=== PATIENT | male | born 1935 | race Caucasian/White ===

== ENCOUNTER 2017-09-25 10:18 | Observation (INO) | payer OTHER ==
[2017-09-25] MEDS ORDERED: LIDOCAINE 2% VISCOUS 15 ML UDCUP PO ONE (10:27)
[2017-09-25] MEDS ORDERED: NS 500 ML IV ONE (10:27)
[2017-09-25] MEDS ORDERED: HYOSCYAMINE SULFATE 0.125 MG TAB PO ONE (10:27)
[2017-09-25] MEDS ORDERED: MAG HYDROX/AL HYDROX/SIMETH 30 ML UDCUP PO ONE (10:27)
--- NOTE | 2017-09-25 10:35 | CPEKG ---
Heart Rate: 66 RR Interval: 909 P-R Interval: 260 QRSD Interval: 120 QT Interval: 444 QTC Interval: 466 QRS [place]: -36 T Wave [place]: -9 EKG Severity - ABNORMAL ECG - EKG Impression: ATRIAL-PACED RHYTHM EKG Impression: INCOMPLETE RBBB AND LAFB EKG Impression: PROBABLE LEFT VENTRICULAR HYPERTROPHY EKG Impression: ANTERIOR Q WAVES, POSSIBLY DUE TO LVH Electronically Signed By: Concetta Brown 25-Sep-2017 13:12:22
--- NOTE | 2017-09-25 10:41 | EDPHY ---
H & P Time Seen by Provider: 09/25/17 10:23 HPI/ROS: HPI Chest pain. 82-year-old male from the office of his primary care physician Dr. Law. This patient has a history of coronary artery disease. He had a stent placed in his RCA and June of [address] Rao Mayberry. He also reports that he was seen last fall twice in the emergency department at [facility] [place] [place] in [place] for chest pain. He was admitted overnight the 1st visit and then discharged the following morning after a negative workup. He then had more chest pain about a week later was seen in the emergency department and discharged from the emergency department. 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 He has never had endoscopy. He reports that since last night at 7:30 p.m. He has had mid substernal aching and pressure. He reports it has been constant. He reports that it was an 8/10 at worst this morning. It is now a 4/10. ROS: Constitutional: No fever, no chills. No weakness. Eyes: No discharge. No changes in vision. ENT: No sore throat. No nasal congestion or rhinorrhea. Respiratory: No cough. No shortness of breath. Cardiac: No chest pain, no palpitations. Gastrointestinal: No abdominal pain, no vomiting, no diarrhea. Genitourinary: No hematuria. No dysuria or increased frequency with urination. Musculoskeletal: No back pain. No neck pain. No myalgias or arthralgias. Skin: No rashes. Neurological: No headache. No focal weakness or altered sensation. Past medical history: Coronary artery disease as above. Social history: Nonsmoker. Here with his . No alcohol. Physical Exam: General Appearance: Alert, pleasant, does not appear in distress at this time. This patient is responding to questions appropriately and in full sentences. This patient appears well-hydrated and well-nourished. Eyes: Pupils equal and round no pallor or injection. No lid edema, erythema or injection. Respiratory: There are no retractions, lungs are clear to auscultation with good air movement bilaterally. Cardiovascular: Regular rate and rhythm. No murmur. Gastrointestinal: Abdomen is soft and nontender, no masses, bowel sounds normal. No focal tenderness at McBurney's point. No Archuleta sign. Neurological: Motor sensory function is grossly intact. Cranial nerves are normal. Gait is normal. Skin: Warm and dry, no rashes. Musculoskeletal: Neck is supple and nontender. Extremities are symmetrical. All joints range without pain or impingement. Psychiatric: No agitation. No depression. Database: EKG: EKG time is 10:33 a.m.; EKG shows a narrow complex atrial paced rhythm with a ventricular rate of 66. Incomplete right bundle branch block and left anterior fascicular block noted. Probable left ventricular hypertrophy. T-wave inversion noted in lead 3. The ID, QRS, QT intervals are within normal limits. There are no ST-T wave changes indicative of ischemic or injury pattern. No evidence of right heart strain. This EKG was compared to a prior EKG from June of 2016. No significant changes. Interpreted by me. EKG 2. Time 12:41 p.m.; No significant change from prior. Interpreted by me. Imaging: Chest x-ray AP portable; the cardiac mediastinal silhouette is unremarkable. No evidence of infiltrate or pneumothorax. No acute cardiopulmonary disease process noted. Interpreted by me. CT angiogram of chest; negative for pulmonary embolism. Mild bronchitis. No other pathology. Results were discussed with staff radiologist Dr. Jeromy Gutierrez. Procedures: Emergency department course: Vital signs reviewed. He is moderately hypertensive. Vital signs otherwise normal. EKG obtained and reviewed by myself. Patient will be initially given a GI cocktail. If he has no relief in his pain from this medication. He will be given sublingual nitroglycerin and/or fentanyl for his chest pain. 12:10 p.m., waiting CT scan results. Patient states that he still has a low level of chest pain. We will give a trial dose of nitroglycerin to see if this improves his pain. Hospitalist paged for admission. 12:20 p.m., spoke with hospitalist. Patient accepted for admission to PCU under the care of Dr. Mcpherson. 12:30 p.m., patient had no relief from sublingual nitroglycerin. He will be given small doses of titrated fentanyl for pain relief. He is awaiting admission. His EKG will be repeated. 1:00 p.m., patient re-evaluated. He is feeling better after above fentanyl. Vital signs reviewed and are stable. He appears comfortable. He was transferred to [facility] in stable and improved condition. Differential Diagnosis: The differential diagnosis on this patient includes but is not limited to acute coronary syndrome, anginal equivalent chest pain, esophageal spasm, GERD. This represents a partial list of diagnoses considered. These considerations are based on history, physical exam, past history, reassessment and diagnostic testing. Smoking Status: Former smoker Constitutional: Initial Vital Signs Temperature (C) 36.4 C 09/25/17 10:24 Heart Rate 66 09/25/17 10:24 Respiratory Rate 18 09/25/17 10:24 Blood Pressure 153/100 H 09/25/17 10:24 O2 Sat (%) 92 09/25/17 10:24 O2 Delivery Mode Room Air Allergies/Adverse Reactions: No Known Allergies Allergy (Verified 09/25/17 10:24) Home Medications: Medication Instructions Recorded Omeprazole [Prilosec 20 mg] 20 mg PO BID 09/18/13 Aspirin [Aspirin 81mg (*)] 81 mg PO DAILY 04/20/15 C/E/Zn/Cu/OM3/DHA/EPA/LUT/ZEAX 1 each PO BID 07/12/16 [Preservision Areds 2 Softgel] Levothyroxine [Synthroid 137 mcg 137 mcg PO DAILY06 07/12/16 (*)] Lisinopril [Zestril 10 mg (*)] 10 mg PO DAILY@18 07/12/16 Mirtazapine [Remeron] 7.5 - 15 mg PO HS PRN 07/12/16 Atorvastatin Calcium [Lipitor 40 40 mg PO DAILY #30 tab 07/13/16 mg (*)] Ticagrelor [Brilinta] 90 mg PO BID #60 tab 07/13/16 Medical Decision Making - Diagnostics Imaging Results: Imaging Impressions Chest X-Ray 09/25/17 10:28 Impression: Basilar atelectasis with no acute findings. - Data Points Laboratory Results: Laboratory Results 09/25/17 10:44 09/25/17 10:44 09/25/17 09/25/17 09/25/17 10:44 10:44 10:44 WBC 8.42 10^3/uL 10^3/uL (3.80-9.50) RBC 5.01 10^6/uL 10^6/uL (4.40-6.38) Hgb 15.6 g/dL g/dL (13.7-17.5) Hct 46.8 % % (40.0-51.0) MCV 93.4 fL fL (81.5-99.8) MCH 31.1 pg pg (27.9-34.1) MCHC 33.3 g/dL g/dL (32.4-36.7) RDW 13.1 % % (11.5-15.2) Plt Count 222 10^3/uL 10^3/uL (150-400) MPV 9.0 fL fL (8.7-11.7) Neut % (Auto) 76.1 % H % (39.3-74.2) Lymph % (Auto) 15.3 % % (15.0-45.0) [place] % (Auto) 6.4 % % (4.5-13.0) Eos % (Auto) 1.4 % % (0.6-7.6) Baso % (Auto) 0.4 % % (0.3-1.7) Nucleat RBC Rel Count 0.0 % % (0.0-0.2) Absolute Neuts (auto) 6.41 10^3/uL 10^3/uL (1.70-6.50) Absolute Lymphs (auto) 1.29 10^3/uL 10^3/uL (1.00-3.00) Absolute Monos (auto) 0.54 10^3/uL 10^3/uL (0.30-0.80) Absolute Eos (auto) 0.12 10^3/uL 10^3/uL (0.03-0.40) Absolute Basos (auto) 0.03 10^3/uL 10^3/uL (0.02-0.10) Absolute Nucleated RBC 0.00 10^3/uL 10^3/uL (0-0.01) Immature Gran % 0.4 % % (0.0-1.1) Immature Gran # 0.03 10^3/uL 10^3/uL (0.00-0.10) PT 13.6 SEC SEC (12.0-15.0) INR 1.05 (0.83-1.16) APTT 26.2 SEC SEC (23.0-38.0) D-Dimer 0.62 ug/mLFEU H ug/mLFEU (0.00-0.50) Sodium 140 mEq/L mEq/L (135-145) Potassium 4.5 mEq/L mEq/L (3.5-5.2) Chloride 102 mEq/L mEq/L (97-110) Carbon Dioxide 25 mEq/l mEq/l (22-31) Anion Gap 13 mEq/L mEq/L (8-16) BUN 15 mg/dL mg/dL (7-23) Creatinine 1.0 mg/dL mg/dL (0.7-1.3) Estimated GFR > 60 Glucose 108 mg/dL H mg/dL (70-100) Calcium 9.1 mg/dL mg/dL (8.5-10.4) Total Bilirubin 0.9 mg/dL mg/dL (0.1-1.4) Conjugated Bilirubin 0.2 mg/dL mg/dL (0.0-0.5) Unconjugated Bilirubin 0.7 mg/dL mg/dL (0.0-1.1) AST 28 IU/L IU/L (17-59) ALT 40 IU/L IU/L (21-72) Alkaline Phosphatase 96 IU/L IU/L (38-126) Creatine Kinase 60 IU/L IU/L (0-224) CK-MB (CK-2) Fraction 1.43 ng/mL ng/mL (0.00-4.55) Troponin I < 0.012 ng/mL ng/mL (0.000-0.034) Total Protein 7.1 g/dL g/dL (6.3-8.2) Albumin 3.9 g/dL g/dL (3.5-5.0) Lipase 131 IU/L IU/L (23-300) Medications Given: Nitroglycerin (Nitrostat) 0.4 mg SL Q5M PRN PRN Reason: Chest Pain Last Admin: 09/25/17 12:14 Dose: 0.4 mg Discontinued Medications Al Hydroxide/Mg Hydroxide (Maalox Susp) 30 ml PO ONCE ONE Stop: 09/25/17 10:28 Last Admin: 09/25/17 10:48 Dose: 30 ml Fentanyl (Sublimaze) 15 mcg IVP EDNOW ONE Stop: 09/25/17 12:29 Last Admin: 09/25/17 12:39 Dose: 15 mcg Hyoscyamine Sulfate (Levsin, Hyomax-Sl) 0.25 mg PO ONCE ONE Stop: 09/25/17 10:28 Last Admin: 09/25/17 10:48 Dose: 0.25 mg Sodium Chloride (Ns) 500 mls @ 0 mls/hr IV EDNOW ONE; Wide Open PRN Reason: Protocol Stop: 09/25/17 10:28 Last Admin: 09/25/17 10:48 Dose: 500 mls Lidocaine (Lidocaine 2% Viscous) 15 ml PO ONCE ONE Stop: 09/25/17 10:28 Last Admin: 09/25/17 10:48 Dose: 15 ml Ondansetron HCl (Zofran) 4 mg IVP EDNOW ONE Stop: 09/25/17 12:39 Last Admin: 09/25/17 12:39 Dose: 4 mg Departure - Departure Disposition: [facility] Acute Clinical Impression: Chest pain
[2017-09-25 10:48] LABS: PLATELET COUNT 222 10^3/uL (150-400)
[2017-09-25 11:00] LABS: INR 1.05 (0.83-1.16); PROTIME(PATIENT) 13.6 SEC (12.0-15.0)
[2017-09-25 11:06] LABS: CREATINE KINASE 60 IU/L (0-224)
[2017-09-25] MEDS ORDERED: IOPAMIDOL (ISOVUE 370) 100 ML BTL IV ONE (11:20)
[2017-09-25] MEDS ORDERED: NITROGLYCERIN 0.4 MG BTL SL PRN ×2 (12:10→15:26)
[2017-09-25] MEDS ORDERED: fentaNYL 100 MCG/2 ML INJ IVP ONE ×2 (12:28→13:12)
[2017-09-25] MEDS ORDERED: ONDANSETRON 4 MG/2 ML VIAL ONE (12:37)
[2017-09-25] MEDS ORDERED: ONDANSETRON 4 MG/2 ML VIAL IVP ONE (12:38)
--- NOTE | 2017-09-25 12:43 | CPEKG ---
Heart Rate: 66 RR Interval: 909 P-R Interval: 181 QRSD Interval: 130 QT Interval: 464 QTC Interval: 487 P [place]: 0 QRS [place]: -28 T Wave [place]: -7 EKG Severity - ABNORMAL ECG - EKG Impression: ATRIAL-PACED COMPLEXES EKG Impression: PROBABLE LEFT ATRIAL ABNORMALITY EKG Impression: RIGHT BUNDLE BRANCH BLOCK EKG Impression: PROBABLE ANTEROSEPTAL INFARCT, AGE INDETERM Electronically Signed By: Concetta Brown 25-Sep-2017 13:12:22
[2017-09-25] MEDS ORDERED: ONDANSETRON 4 MG/2 ML VIAL IVP PRN (15:24)
[2017-09-25] MEDS ORDERED: ONDANSETRON DISINTEGRATING 4 MG TAB PO PRN (15:24)
[2017-09-25] MEDS ORDERED: ACETAMINOPHEN 325 MG TAB PO PRN (15:24)
[2017-09-25] MEDS ORDERED: MIRTAZAPINE 15 MG ODTAB PO PRN (15:26)
[2017-09-25] MEDS ORDERED: MBX SOLN 30 ML BOTTLE PO PRN (15:28)
--- NOTE | 2017-09-25 16:05 | GHP ---
[f rep st] HISTORY AND PHYSICAL DATE OF ADMISSION: 09/25/2017 The patient is an 82-year-old gentleman with a history of pacemaker and cardiac stenting RCA June 2016 who presents with chest pain. He has had this chest pain before which does not necessarily cor relate with his need for stent. That sounds like he had a positive stress test. He has been seen fo r this before at the [facility] where he was told this was attributable to Bronson' s esophagus, although he has not had endoscopy. Regarding his chest pain it has been waxing and waning, but pretty steady since 7:30 p.m. last night. It is in the center of his chest. It did not respond to a GI cocktail or nitroglycerin. It is not necessarily exertional, but then he also gives a story of perhaps some exertional chest pain. He vaca s not had PND, orthopnea, or lower extremity edema. He has not had fever or chills. He has not had nausea, vomiting, or diarrhea. REVIEW OF SYSTEMS: Complete 10-point review of systems conducted and negative except as noted in the HPI. PAST MEDICAL HISTORY: For variant of trigeminal neuralgia. MEDICATIONS: Ibuprofen, enteric-coated aspirin, atorvastatin, baclofen, levothyroxine, lisinopril, m etoprolol, mirtazapine, nitroglycerin, oxycodone, ranitidine, sucralfate. ALLERGIES: He became leukopenic to carbamazepine. SOCIAL HISTORY: Occasional alcohol though he is not drinking currently because it is L[place]. He is a retired phone company executive. FAMILY HISTORY: His parents are . PHYSICAL EXAMINATION: VITAL SIGNS: Temp 36.4, blood pressure 155/92, pulse 79, breathing 13 times a minute, 96% on 2 L. GENERAL: No acute distress. HEENT: Sclerae anicteric. Oropharynx clear. Mu cous membranes moist. NECK: Supple. No lymphadenopathy or JVD. LUNGS: Clear to auscultation bila terally. HEART: S1, S2. ABDOMEN: Soft, nontender, nondistended. LOWER EXTREMITIES: Without robin a. Calves are nontender. SKIN: Without rash. NEUROLOGIC: . LABORATORY DATA: CBC normal. D-dimer 0.6. Coags normal. Chem 7, LFTs, troponin all normal. EKG i nterpreted by me, shows an atrial paced rhythm with a right bundle branch block. The conduction abno rmality is not new. CTA shows no pulmonary embolism, airways disease, coronary artery atherosclerosi s, nephrolithiasis. It is nonobstructive. Chest x-ray shows no acute cardiopulmonary disease. I di scussed the case with ASSESSMENT/PLAN: 82-year-old with chest pain. 1. Chest pain. It is atypical for cardiac chest pain. However. His presence of coronary disease an d the occasional exertional nature of this is noted I will cycle troponins and order a stress test wi nuclear imaging tomorrow given his abnormal EKG. 2. History of reflux. Sounds like he has long-standing reflux which is treated fairly maximally as an outpatient. He does need surveillance endoscopy to rule out Bronson's which has been given as a c ause for his pain which is certainly not the case. 3. Question peptic ulcer disease. The patient has chest pain that could be secondary to. May have peptic ulcer disease. I am going to hold his nonsteroidal anti-inflammatories for now. He is alread y being treated. 4. Prophylaxis. Pharmacologic prophylaxis indicated if in the hospital longer than 24 hours. 5. Disposition. Observation status. /[id number]/MODL
[2017-09-25] MEDS: oxyCODONE IR 5 MG TAB PO PRN (17:37)
[2017-09-25] MEDS: BACLOFEN 10 MG TAB PO SCH ×2 (17:37→19:52)
[2017-09-25] MEDS ORDERED: KETOROLAC 30 MG/1 ML SDV IVP ONE (19:26)
[2017-09-25] MEDS: METOPROLOL TARTRATE 25 MG TAB PO SCH (19:51)
[2017-09-25] MEDS: PRESERVISION AREDS2 FORMULA EYE VIT 1 EACH PO SCH (19:52)
[2017-09-25] MEDS: FAMOTIDINE 20 MG TAB PO SCH (19:52)
[2017-09-25] MEDS ORDERED: LISINOPRIL 5 MG TAB PO SCH (21:00)
[2017-09-25] MEDS ORDERED: ATORVASTATIN CALCIUM 40 MG TAB PO SCH (21:00)
[2017-09-26] MEDS ORDERED: LEVOTHYROXINE 137 MCG TAB PO SCH (06:00)
[2017-09-26 08:35] VITALS: RESP 18
[2017-09-26] MEDS: FAMOTIDINE 20 MG TAB PO SCH (08:36)
[2017-09-26] MEDS: oxyCODONE IR 5 MG TAB PO PRN ×2 (08:36→15:04)
[2017-09-26] MEDS ORDERED: SUCRALFATE 1 GM TAB PO SCH (09:00)
[2017-09-26] MEDS ORDERED: ASPIRIN EC 81 MG TAB PO SCH (09:00)
--- NOTE | 2017-09-26 11:03 | CPR ---
[f rep st] NONINVASIVE CARDIAC PROCEDURE REPORT PROCEDURE PERFORMED: Exercise Treadmill of Exercise Treadmill Myocardial Perfusion Imaging Study INDICATION FOR STRESS TESTING: Known history of CAD, mild episodes of chest pressure. PRE: After obtaining informed consent, patient was placed on electrocardiogram. Initial EKG shows atrial paced rhythm with intrinsic ventricular response showing right bundle branch blocks, with inverted T-waves noted in V3. Patient denies of any chest pain, shortness of breath, or symptoms suggesting of ischemia. Initial vital signs, SpO2 88% on room air, placed on 2 L nasal cannula, up to 97%. Initial blood pressure was 124/60. STRESS: Following standard Carlos Eduardo protocol the following findings: 1. Patient exercised 6 minutes and 20 seconds. 2. 7.1 METS. 3. Patient obtained a heart rate of 129 beats per minute, which was 94% of MPHR. 4. Patient reported no chest pain or symptoms suggesting of ischemia during testing. 5. Patient was noted to have a [address] depression in inferior lateral leads. 6. SpO2 remained greater than 90% on 2 L nasal cannula throughout testing. 7. The patient's BP response restin/60, peak: 160/62. 8. The patient was noted to have occasional PAC, rare PVC during stress. 9. Test was stopped due to maximum effort. 10. Saavedra treadmill score of 6, placing him at low cardiovascular risk. RECOVERY: Patient recovered for 5 minutes. Within that time frame, heart rate returned back to baseline. Continued to note occasional PAC, rare PVC. Patient remained asymptomatic of symptoms suggesting of ischemia. Final blood pressure was 130/64, saturation 97% on 2 L nasal cannula. IMPRESSION: 82-year-old male with known history of coronary artery disease, abnormal chest pressure, currently asymptomatic. Exercise treadmill testing showing no significant EKG shifting suggesting of ischemia at peak exercise, Saavedra treadmill score 6 placing him at low cardiovascular risk, rare premature atrial contractions, rare premature ventricular contractions. No other malignant arrhythmias noted. The patient noted initially to be mildly hypoxic on room air, which corrected with the use of O2 via nasal cannula. Vital signs are stable. He is being taken down to Nuclear Medicine at this time for post- stress imaging. /[id number]/MODL MTDD
[2017-09-26] MEDS: PRESERVISION AREDS2 FORMULA EYE VIT 1 EACH PO SCH (11:17)
[2017-09-26] MEDS: BACLOFEN 10 MG TAB PO SCH (11:17)
[2017-09-26] MEDS: METOPROLOL TARTRATE 25 MG TAB PO SCH (11:17)
--- NOTE | 2017-09-26 14:06 | HOSPPROG ---
Hospitalist Progress Note Assessment/Plan: 82 yo M w cp neg stress see dc summary Subjective: neg stress. no events tele Objective: Vital Signs Temp Pulse Resp BP Pulse Ox 36.8 C 72 18 130/70 H 94 09/26/17 11:45 09/26/17 11:45 09/26/17 11:45 09/26/17 11:45 09/26/17 11:45 09/25/17 09/26/17 09/27/17 05:59 05:59 05:59 Intake Total 1300 Balance 1300 PT 13.6 SEC (12.0-15.0) 09/25/17 10:44 INR 1.05 (0.83-1.16) 09/25/17 10:44 - Physical Exam Constitutional: no apparent distress, appears nourished Eyes: PERRL, anicteric sclera Ears, Nose, Mouth, Throat: moist mucous membranes, hearing normal Cardiovascular: regular rate and rhythym, no murmur, rub, or gallop Respiratory: no respiratory distress, no rales or rhonchi Gastrointestinal: normoactive bowel sounds, soft, non-tender abdomen Genitourinary: no bladder fullness Skin: warm, normal color Musculoskeletal: full muscle strength Neurologic: AAOx3 ICD10 Worksheet Patient Problems: Problems Problem Status Onset Chest pain Acute
[2017-09-26 14:36] VITALS: BP 115/63; PULSE 65; TEMP 97.8; O2SAT 93
== END 2017-09-26 15:34 | disposition home or self-care (01) ==
LOC: CED 10:18 → CEDHOLD 12:15 → F2W 14:48
PROVIDERS: ADMIT Hospitalist; ATTEND Hospitalist
DX: R07.9 Chest pain, unspecified (principal); I25.10 Atherosclerotic heart disease of native coronary artery without angina pectoris; Z95.5 Presence of coronary angioplasty implant and graft; Z95.0 Presence of cardiac pacemaker; I10 Essential (primary) hypertension; K21.9 Gastro-esophageal reflux disease without esophagitis
CPT/HCPCS: 71045; 71275; 78452; 93005; 93017; 96361; 96374; 96375; 99285; A9500; G0378; J1885; J2270; J2405; J3010; Q9967; 80048-PO; 80076-PO; 82550-PO; 82553-PO; 83690-PO; 84484-PO; 85025-PO; 85378-PO; 85610-PO; 85730-PO

== ENCOUNTER → 2018-01-09 | Outpatient (CLI) | payer OTHER | LOC: CIMAGING 09:58 | PROVIDERS: ATTEND Internal Medicine | DX: M71.21 Synovial cyst of popliteal space [Baker], right knee (principal); M25.561 Pain in right knee | CPT/HCPCS: 73562-PO ==

== ENCOUNTER → 2018-07-26 | Outpatient (CLI) | payer OTHER | LOC: CIMAGING 13:14 | PROVIDERS: ATTEND Internal Medicine | DX: M16.11 Unilateral primary osteoarthritis, right hip (principal); M47.812 Spondylosis without myelopathy or radiculopathy, cervical region | CPT/HCPCS: 73502-PO ==

== ENCOUNTER → 2018-08-01 | Outpatient (CLI) | payer OTHER | LOC: CIMAGING 07:59 | PROVIDERS: ATTEND Internal Medicine | DX: M51.16 Intervertebral disc disorders with radiculopathy, lumbar region (principal); M51.34 Other intervertebral disc degeneration, thoracic region; M48.061 Spinal stenosis, lumbar region without neurogenic claudication; M46.96 Unspecified inflammatory spondylopathy, lumbar region; M48.04 Spinal stenosis, thoracic region; N20.0 Calculus of kidney; N28.1 Cyst of kidney, acquired | CPT/HCPCS: 72131-PO ==